=== PATIENT | male | born 1960 | race Caucasian/White ===

== ENCOUNTER → 2016-07-29 | Outpatient (CLI) | payer BC, OTHER ==
[~2016-07-29] VITALS: Ht 182.9 cm; Wt 98.9 kg
[~2016-07-29] MED LIST: A&D OINTMENT60 GM TP; ANUSOL-HC21 GM PR; ASPIRIN81 M2 PO; CATAPRES0.1 MG PO; CENTRUM SILVER1 EAC5 PO; DYAZIDE, MA1 CAPSULE PO; ELAVIL10 MG PO; ERGOCALCIF50000 UNIT PO; FISH OIL 1,0001 EA10 PO; FISH OIL CONC1 EACH PO; GABAPENTIN600 MG PO; GENERLAC10 GM/15 M PO; GLUCOPHAGE850 MG PO; HUMULIN R100 UNITS/ SC; HYDROCHLOROTHIA25 MG PO; HYDROCODON-ACE1 EAC7 PO; Hydrodiuril,Oretic,E PO; LACTULOSE10 GM/151 PO; LANTUS 10100 UNITS/ SC; LEVEMIR100 UNIT/2; LIDEX 0.05% CRE60 GM TP; LISINOPRIL40 MG PO; LOW DOSE ASPIRI81 M2 PO; MAXZIDE 37.5 M1 EACH PO; METFORMIN HCL1000 MG PO; METFORMIN HCL850 MG PO; MOTRIN800 MG PO; Motrin PO; NEURONTIN800 MG PO; NORVASC10 MG PO; NOVOLOG PE100 UNITS/ SC; Neurontin PO; PERCOCET 5/31 TABLET PO; POTASSIUM CHLO10 ME3 PO; ROBAXIN500 MG PO; SIMVASTATIN20 MG PO; TENORMIN25 MG PO; Tenormin PO; ULTRAM50 MG PO; VITAMIN D310000 UNIT PO; XANAX0.25 MG PO; ZESTRIL20 MG PO; ZOCOR20 MG PO; [UNRECOGNIZED DRUG - OTHER]
[2016-07-29 07:48] LABS: POINT-OF-CARE METER ID UU13113694
== END | disposition home or self-care (01) ==
LOC: AMB 07-12 07:00
PROVIDERS: Internal Medicine
PROC: 0DJD8ZZ Inspection of Lower Intestinal Tract, Via Natural or Artificial Opening Endoscopic (ICD-10-PCS; principal; 2016-07-29)
DX: Z12.11 Encounter for screening for malignant neoplasm of colon (principal); K64.9 Unspecified hemorrhoids; E11.9 Type 2 diabetes mellitus without complications; I10 Essential (primary) hypertension; E78.5 Hyperlipidemia, unspecified; H40.9 Unspecified glaucoma; F17.200 Nicotine dependence, unspecified, uncomplicated
CPT/HCPCS: 82948; 93005; B4087; J2250; J3010

== ENCOUNTER 2017-04-27 10:59 | Emergency (ER) | payer OTHER, BC ==
[~2017-04-27] VITALS: Ht 182.9 cm; Wt 91.6 kg
[2017-04-27 11:13] VITALS: BP 160/84
[2017-04-27] MEDS ORDERED: MOTRIN600 MG PO (11:52)
[2017-04-27] MEDS ORDERED: FLEXERIL10 MG PO (11:52)
== END 2017-04-27 12:01 | disposition home or self-care (01) ==
LOC: EME 10:59
DX: R51 Headache (principal); M54.2 Cervicalgia; M25.511 Pain in right shoulder; V49.40XA Driver injured in collision with unspecified motor vehicles in traffic accident, initial encounter; Y92.410 Unspecified street and highway as the place of occurrence of the external cause; I10 Essential (primary) hypertension; E78.5 Hyperlipidemia, unspecified; E11.9 Type 2 diabetes mellitus without complications; Z79.4 Long term (current) use of insulin; Z79.82 Long term (current) use of aspirin; F17.200 Nicotine dependence, unspecified, uncomplicated
CPT/HCPCS: 99281; 99283

== ENCOUNTER 2017-06-18 09:31 | Inpatient (IN) | payer BC, OTHER ==
[~2017-06-18] VITALS: Ht 182.9 cm; Wt 89.3 kg
[~2017-06-18 09:31] MED LIST changes: +FLEXERIL10 MG PO; +MOTRIN600 MG PO
[2017-06-18 10:30] LABS: HEMATOCRIT 43.1 % (38.0-50.0); MCH 28.8 PG (29.0-34.0); MCHC 33.9 G/DL (30.0-36.0); PLATELET COUNT 204 K/uL (156-360); RBC DIS.WIDTH-CV 12.5 % (11.8-14.6); RBC DIS.WIDTH-SD 38.5 % (39-53); RED BLOOD COUNT 5.07 M/uL (4.00-5.50); WHITE BLOOD COUNT 9.3 K/uL (4.1-10.2)
[2017-06-18 10:34] LABS: CHLORIDE 102 mEq/L (99-109); POTASSIUM 4.3 mEq/L (3.7-5.4); SODIUM 136 mEq/L (136-147)
[2017-06-18 10:36] LABS: GLUCOSE 274 mg/dL (70-99)
[2017-06-18 10:38] LABS: ANION GAP 10 MEQ/L (2-14)
[2017-06-18 10:40] LABS: GFR ESTIMATE (CALCULATED) > 59 mL/min/ (58.99-99999)
[2017-06-18 10:41] LABS: UREA NITROGEN (BUN) 14 mg/dL (9-23)
[2017-06-18] MEDS ORDERED: METOPROLOL SUC100 MG PO (15:25)
[2017-06-18] MEDS ORDERED: SUBOXONE 12 MG1 EACH SL (15:25)
[2017-06-18 17:32] VITALS: BP 204/94
[2017-06-18 17:40] LABS: POINT-OF-CARE METER ID UU13113717
[2017-06-18 18:39] LABS: HDL CHOLESTEROL 30 MG/DL (Desirable>=40); LDL CHOLESTEROL 64 mg/dL (Desirable<100); NON-HDL CHOLESTEROL 88 mg/dL (Desirable<160); TOTAL CHOLESTEROL 118 mg/dL (Desirable<200); TRIGLYCERIDES 119 MG/DL (Normal: <150)
[2017-06-18 23:16] LABS: POINT-OF-CARE METER ID UU14174225
[2017-06-19 00:01] VITALS: BP 179/81
[2017-06-19 03:59] VITALS: BP 162/76
[2017-06-19 06:45] VITALS: BP 203/114
[2017-06-19 09:52] LABS: POINT-OF-CARE METER ID UU13113717
== END 2017-06-19 11:19 | disposition left against medical advice (07) | DRG 65 ==
LOC: EME 09:31 → EDOF 15:39 → 5SOUTH 15:39 → ENRESERV 15:43 → 5SOUTH 17:11
PROVIDERS: Family Medicine Sports Medicine
DX: I63.9 Cerebral infarction, unspecified (principal); G81.94 Hemiplegia, unspecified affecting left nondominant side; I50.9 Heart failure, unspecified; E11.40 Type 2 diabetes mellitus with diabetic neuropathy, unspecified; I11.0 Hypertensive heart disease with heart failure; E78.5 Hyperlipidemia, unspecified; F41.1 Generalized anxiety disorder; F11.11 Opioid abuse, in remission; R29.810 Facial weakness; G89.29 Other chronic pain; J44.9 Chronic obstructive pulmonary disease, unspecified; K21.9 Gastro-esophageal reflux disease without esophagitis; M19.90 Unspecified osteoarthritis, unspecified site; K80.20 Calculus of gallbladder without cholecystitis without obstruction; G93.9 Disorder of brain, unspecified; F41.9 Anxiety disorder, unspecified; F32.9 Major depressive disorder, single episode, unspecified; M54.5 Low back pain; F17.210 Nicotine dependence, cigarettes, uncomplicated; Z71.6 Tobacco abuse counseling; Z91.19 Patient's noncompliance with other medical treatment and regimen; R10.9 Unspecified abdominal pain; Z79.82 Long term (current) use of aspirin; Z79.84 Long term (current) use of oral hypoglycemic drugs; Z79.899 Other long term (current) drug therapy; Z79.02 Long term (current) use of antithrombotics/antiplatelets
CPT/HCPCS: 70450; 70551; 71020; 72125; 80048; 80061; 82948; 83036; 85027; 92610 GN; 93005; 93306; 93880; 99281; 99285; J0574; J1650; J1815

== ENCOUNTER 2017-07-09 22:00 | Emergency (ER) | payer BC, OTHER ==
[~2017-07-09] VITALS: Ht 182.9 cm; Wt 94.0 kg
[~2017-07-09 22:00] MED LIST changes: +METOPROLOL SUC100 MG PO; +SUBOXONE 12 MG1 EACH SL
[2017-07-09] MEDS ORDERED: KEFLEX500 MG PO (23:43)
[2017-07-09] MEDS ORDERED: BACTRIM,SEPT1 TABLET PO (23:43)
[2017-07-09 23:57] VITALS: BP 116/64
== END 2017-07-10 | disposition home or self-care (01) ==
LOC: EME 22:00
DX: L03.114 Cellulitis of left upper limb (principal); Z72.0 Tobacco use; Z88.0 Allergy status to penicillin; Z88.8 Allergy status to other drugs, medicaments and biological substances
CPT/HCPCS: 99281; 99284